=== PATIENT | female | born 1970 | race Caucasian/White ===

== ENCOUNTER 2016-07-26 11:13 | Outpatient (CLI) | payer SELFPAY | END 2016-07-26 11:14 | disposition home or self-care (01) | DX: Z53.9 Procedure and treatment not carried out, unspecified reason (principal); Z12.31 Encounter for screening mammogram for malignant neoplasm of breast ==

== ENCOUNTER 2017-08-13 17:17 | Emergency (ER) | payer BC ==
[2017-08-13 17:25] VITALS: BP 140/89
--- NOTE | 2017-08-13 17:28 | ED Physician Documentation ---
PD HPI LOWER EXT INJURY - Stated complaint Stated Complaint: L FOOT TOE INJ - Chief complaint Chief Complaint: Ext Problem - History obtained from History obtained from: Patient - History of Present Illness PD HPI LOW EXT INJURY LOCATION: Other (She accidentally kicked a piece of wood and injured the left fourth toe tonight with moderate pain. No other injuries.) Review of Systems Constitutional: reports: Reviewed and negative Throat: reports: Reviewed and negative Cardiac: reports: Reviewed and negative PD PAST MEDICAL HISTORY - Past Medical History Endocrine/Autoimmune: Type 2 diabetes - Past Surgical History Past Surgical History: Yes - Present Medications Home Medications: Ambulatory Orders Medication Instructions Recorded Confirmed Gabapentin 1 tab PO DAILY 08/13/17 08/13/17 HYDROcod/ACETAM 5/325 [Hubbell 5/325] 1 - 2 ea PO Q6H PRN #15 tablet 08/13/17 Norethindrone AC-Eth Estradiol 1 tab PO DAILY 08/13/17 08/13/17 [Loestrin 21 1-20 Tablet] - Allergies Allergies/Adverse Reactions: Allergies Allergy/AdvReac Type Severity Reaction Status Date / Time No Known Drug Allergies Allergy Verified 08/13/17 17:29 - Social History Does the pt smoke?: No Smoking Status: Never smoker Does the pt have substance abuse?: No - POLST Patient has POLST: No PD ED PE NORMAL - Vitals Vital signs reviewed: Yes - General General: Alert and oriented X 3, No acute distress - Extremities Extremities: Other (The left fourth toe is slightly rotated and everted and very tender.) - Neuro Neuro: Alert and oriented X 3, Normal speech Results - Vitals Vitals: Vital Signs - 24 hr 08/13/17 17:24 Temperature 37 C Heart Rate 94 Respiratory 20 Rate Blood Pressure 140/89 H O2 Saturation 98 Oxygen O2 Source Room air - Rads (name of study) L 4th toe Radiology: EMP read contemporaneously (Oblique fracture with angulation of the proximal phalanx) Procedures - Reduction Body part reduced: Left, Toe Fracture or dislocation: Fracture Anesthesia: Digital block, Lidocaine (enter cc) (2ml, buffered) Reduction aftercare: Alignment improved, Splint applied (eva tape and shoe), Patient tolerated well Departure - Departure Disposition: 01 Home, Self Care Clinical Impression: Toe fracture, left Qualifiers: Encounter type: initial encounter Toe: lesser toe Fracture type: closed Phalanx : proximal Fracture alignment: displaced Qualified Code(s): S92.512A - Displaced fracture of proximal phalanx of left lesser toe(s), initial encounter for closed fracture Condition: Good Record reviewed to determine appropriate education?: Yes Instructions: ED Fx Toe Closed Prescriptions: HYDROcod/ACETAM 5/325 [Hubbell 5/325] 1 - 2 ea PO Q6H PRN #15 tablet PRN Reason: Pain Comments: Recheck with your physician in 1-2 weeks, return if worse. Do not drink or drive while taking narcotic pain medication. Note that many narcotic pain relievers also contain Tylenol/acetaminophen. Please ensure that your total dose of acetaminophen from all sources does not exceed 3 g (3000 mg) per day. You may get constipated while on this medication. Take a stool softener such as Colace twice a day while you are on it. Also add an febd-rop-eepsgzt laxative such as senna or MiraLAX on any day that you do not have a bowel movement. If you received a narcotic pain medication or sedative while in the emergency department, do not drive for the next 24 hours. Your blood pressure was elevated today on check into the emergency department. This does not mean that you have hypertension, it is a common phenomenon to come to the emergency department and have elevated blood pressure. I recommend that you see your primary care physician within the week to have it rechecked when you are feeling better. Forms: Activity restrictions
[2017-08-13] MEDS ORDERED: HYDROcod/ACETAM 5/325 MG TABLET PO STA (17:36)
[2017-08-13] MEDS ORDERED: BUFFERED LIDOCAINE 10 ML SYRINGE IU ONE (17:44)
[2017-08-13] MEDS ORDERED: BUFFERED LIDOCAINE 10 ML SYRINGE ONE (17:54)
--- NOTE | 2017-08-13 17:59 | XRAY Report ---
EXAM: LEFT TOE RADIOGRAPHY EXAM DATE: 08/13/2017 05:29 PM. CLINICAL HISTORY: Left fourth digit pain. Injury. COMPARISON: None. TECHNIQUE: 3 views. FINDINGS: Bones: Oblique fracture is present involving the mid shaft of the left fourth proximal phalanx with n early complete lateral displacement of the distal fracture fragment. There is mild lateral angulation and mild dorsal angulation present. No intra-articular extent. Joints: Normal. No subluxations. Soft Tissues: Soft tissue swelling. IMPRESSION: 1. Oblique displaced mildly angulated midshaft left fourth proximal phalanx fracture. [facility] Referring Provider Line: [phone] SITE ID: [id number]
== END 2017-08-13 17:56 | disposition home or self-care (01) ==
LOC: ED 17:17
DX: S92.512A Displaced fracture of proximal phalanx of left lesser toe(s), initial encounter for closed fracture (principal); W22.8XXA Striking against or struck by other objects, initial encounter; R03.0 Elevated blood-pressure reading, without diagnosis of hypertension; E11.9 Type 2 diabetes mellitus without complications
CPT/HCPCS: 28510; 73660; 99283; A9270

== ENCOUNTER 2017-09-16 17:11 | Outpatient (CLI) | payer BC ==
--- NOTE | 2017-09-16 22:14 | XRAY Report ---
EXAM: LEFT FOURTH TOE AND LEFT FOOT RADIOGRAPHY EXAM DATE: 09/16/2017 05:19 PM. CLINICAL HISTORY: Severe toe pain after fracture. COMPARISON: 08/13/2017. TECHNIQUE: 3 views left foot and left fourth toe. FINDINGS: Bones: Subacute displaced fracture deformity in the mid right fourth proximal phalanx diaphysis with residual one shaft width of lateral displacement. Fracture remains visible. No definite bony bridging is noted. The remaining osseous structures of the left foot are normal. Joints: Normal. No subluxations. Soft Tissues: Soft tissue swelling centered in the left fourth toe. IMPRESSION: 1. Persistent fracture deformity due to an obliquely oriented displaced mid right fourth proximal pha lanx diaphyseal fracture. One shaft width of lateral displacement is noted. No definite bony bridging . Alignment is similar to the prior study. 2. No new fractures. 3. Soft tissue swelling centered in the left fourth toe. [facility] Referring Provider Line: [phone] SITE ID: [id number]
== END 2017-09-16 17:12 | disposition home or self-care (01) ==
LOC: DI 17:11
PROVIDERS: ATTEND Internal Medicine
DX: M79.675 Pain in left toe(s) (principal); S92.512S Displaced fracture of proximal phalanx of left lesser toe(s), sequela
CPT/HCPCS: 73660

== ENCOUNTER 2017-09-29 16:41 | Outpatient (CLI) | payer OTHER ==
--- NOTE | 2017-09-30 11:06 | XRAY Report ---
THREE VIEW LEFT ANKLE: 09/29/2017 CLINICAL INDICATION: Injury, pain. FINDINGS: AP, lateral, oblique views of the left ankle demonstrate mild degenerative changes. There is no evidence of acute fracture or dislocation. Small plantar and posterior calcaneal spurs are present. IMPRESSION: MILD OSTEOARTHRITIS. TD: 09/30/2017 11:05
== END 2017-09-29 16:42 | disposition home or self-care (01) ==
LOC: DI 16:41
PROVIDERS: ATTEND Internal Medicine
DX: S99.912A Unspecified injury of left ankle, initial encounter (principal); M19.072 Primary osteoarthritis, left ankle and foot

== ENCOUNTER 2019-06-04 16:43 | Outpatient (CLI) | payer BC ==
--- NOTE | 2019-06-04 17:10 | XRAY Report ---
Reason: LT KNEE PAIN AFTER FALL Procedure Date: 06/04/2019 Accession Number: [id number] / [id number] Procedure: XR - Knee 3 View LT CPT Code: Final Report FULL RESULT: EXAM: LEFT KNEE RADIOGRAPHY EXAM DATE: 06/04/2019 04:56 PM. CLINICAL HISTORY: LT KNEE PAIN AFTER FALL. COMPARISON: None. TECHNIQUE: 3 views. FINDINGS: Bones: No fractures or bone lesions. Joints: Normal alignment. No effusion. No subluxations. Soft Tissues: Heterotopic calcifications noted medial to the distal femur, chronic. IMPRESSION: No acute fracture or subluxation. [facility]
== END 2019-06-04 16:44 | disposition home or self-care (01) ==
LOC: DI 16:43
PROVIDERS: ATTEND Internal Medicine
DX: M25.562 Pain in left knee (principal)

== ENCOUNTER 2019-09-12 16:38 | Outpatient (CLI) | payer OTHER, BC | END 2019-09-12 16:39 | disposition critical access hospital (66) | LOC: EMS 16:38 | PROVIDERS: ATTEND Surgery | DX: M54.2 Cervicalgia (principal); R07.81 Pleurodynia; R07.89 Other chest pain; V49.40XA Driver injured in collision with unspecified motor vehicles in traffic accident, initial encounter; Y92.414 Local residential or business street as the place of occurrence of the external cause | CPT/HCPCS: A0425; A0429 ==

== ENCOUNTER 2019-09-12 17:07 | Emergency (ER) | payer OTHER, BC ==
[2019-09-12] MEDS ORDERED: IBUPROFEN 800 MG TABLET PO STA (17:49)
[2019-09-12] MEDS ORDERED: HYDROcod/ACETAM 5/325 MG TABLET PO STA (17:49)
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
[2019-09-12 18:11] VITALS: BP 176/134
== END 2019-09-12 18:19 | disposition home or self-care (01) ==
LOC: EDUNIT# → ED 17:07
DX: S16.1XXA Strain of muscle, fascia and tendon at neck level, initial encounter (principal); V49.49XA Driver injured in collision with other motor vehicles in traffic accident, initial encounter; E11.9 Type 2 diabetes mellitus without complications
CPT/HCPCS: 99283; 99284; A9270

== ENCOUNTER 2019-11-12 15:27 | Outpatient (CLI) | payer BC ==
[2019-11-12] MEDS ORDERED: IOVERSOL 320 50 ML VIAL ONE (15:45)
[2019-11-12 16:04] LABS: CREATININE 0.5 mg/dL (0.4-1.0)
[2019-11-12] MEDS ORDERED: IOVERSOL 320 100 ML VIAL IVP ONE ×2 (16:43→17:00)
[2019-11-12] MEDS ORDERED: IOVERSOL 320 50 ML VIAL PO ONE (17:00)
--- NOTE | 2019-11-12 17:29 | CT Report ---
Reason: Right Lower Quadrant Pain Procedure Date: 11/12/2019 Accession Number: [id number] / [id number] Procedure: CT - Abdomen/Pelvis W CPT Code: Addended Final Report FULL RESULT: EXAM: CT ABDOMEN AND PELVIS EXAM DATE: 11/12/2019 04:56 PM. CLINICAL HISTORY: RIGHT lower quadrant abdominal pain. COMPARISONS: None. TECHNIQUE: Routine helical CT imaging was performed through the abdomen and pelvis. IV contrast: 100 mL OPTIRAY 320. Enteric contrast: Yes. Reconstructions: Coronal and sagittal. In accordance with CT protocol optimization, one or more of the following dose reduction techniques were utilized for this exam: automated exposure control, adjustment of mA and/or KV based on patient size, or use of iterative reconstructive technique. FINDINGS: Mild bibasilar dependent atelectasis is seen. The visible heart is normal in size. There is no pericardial effusion. The liver appears hypoattenuating suggesting diffuse hepatic steatosis. A 1.2 cm peripherally enhancing lesion is suggested in hepatic segment 4B (series 3, image 24). Small calcified gallstones are seen within the gallbladder. There is no gallbladder wall thickening or pericholecystic fluid. No intrahepatic or extrahepatic biliary dilatation is seen. The spleen, pancreas, and adrenal glands are within normal limits. The kidneys enhance symmetrically and are without evidence of mass or hydronephrosis. Diverticula are seen in the colon, greatest in the sigmoid colon. The appendix is normal. There is no evidence of bowel obstruction or inflammation. No free intraperitoneal air or ascites is seen. There is no lymphadenopathy. The abdominal aorta is normal in course and caliber. The bladder is normal. A 1.9 cm cyst is seen in the left ovary. A 2.1 cm hypoattenuating lesion in the right ovary may represent a cyst. The uterus is normal. No free pelvic fluid is seen. There is straightening of the lumbar spine with loss of the normal lumbar lordosis. Severe degenerative disk disease is seen at L5-S1. IMPRESSION: 1. No acute intra-abdominal abnormalities. 2. Cholelithiasis without evidence of acute cholecystitis. 3. Diverticulosis. 4. Suggestion of diffuse hepatic steatosis. 5. Suggestion of peripherally enhancing lesion in hepatic segment 4B may be the result of adjacent overlapping vessels or represent an underlying lesion, such as a hemangioma. Further evaluation with MRI abdomen may be obtained. 6. Bilateral ovarian cysts. [facility] The call report notification system was initiated by Dr. Kenia Arcos at 05:28 PM on 11/12/2019. ADDENDUM: 11/12/19 17:30 The above call report findings were discussed with Dr Bennett by Dr. Kenia Arcos at 05:30 PM on 11/12/2019.
== END 2019-11-12 15:28 | disposition home or self-care (01) ==
LOC: LAB 15:27
PROVIDERS: ATTEND Internal Medicine
DX: K57.30 Diverticulosis of large intestine without perforation or abscess without bleeding (principal); N83.201 Unspecified ovarian cyst, right side; K80.20 Calculus of gallbladder without cholecystitis without obstruction; N83.202 Unspecified ovarian cyst, left side; Z79.899 Other long term (current) drug therapy
CPT/HCPCS: 36415; 74177; 82565; Q9967

== ENCOUNTER 2019-11-16 17:13 | Outpatient (CLI) | payer BC ==
--- NOTE | 2019-11-19 03:30 | Ultrasound Report ---
Reason: OVARIAN LESION,PELVIC PX Procedure Date: 11/16/2019 Accession Number: [id number] / [id number] Procedure: US - Pelvic w/Transvaginal CPT Code: Final Report FULL RESULT: EXAM: PELVIC ULTRASOUND EXAM DATE: 11/16/2019 06:49 PM. CLINICAL HISTORY: Ovarian lesion on CT. Pelvic pain. COMPARISON: ABDOMEN/PELVIS W 11/12/2019 4:50 PM. TECHNIQUE: Realtime transabdominal pelvic scan performed to identify the uterus and adnexa and as an overview of other pelvic structures, followed by transvaginal scan to provide greater detail of the uterus and adnexa, with static image documentation. FINDINGS: Uterus: 8.6 x 5.6 x 6.5 cm, volume 163 cc. Anteverted position. Masses: None. Endometrium: 14 mm. Heterogeneous. Cervix: Unremarkable. Right Ovary: 4.0 x 2.3 x 2.7 cm, volume 12.9 cc. Cyst measuring 2.1 x 1.9 x 2.1 cm. Normal Doppler flow signal. Left Ovary: 3.2 x 2.3 x 2.8 cm, volume 10.8 cc. Cyst measuring 2.5 x 2.1 x 1.7 cm. Normal Doppler flow signal. Free Fluid: None. Other: None. IMPRESSION: 1. Mildly thickened endometrium measuring 14 mm. 2. Small cyst in each ovary. [facility]
== END 2019-11-16 17:14 | disposition home or self-care (01) ==
LOC: DI 17:13
PROVIDERS: ATTEND Internal Medicine
DX: N83.202 Unspecified ovarian cyst, left side (principal); N83.201 Unspecified ovarian cyst, right side; R93.89 Abnormal findings on diagnostic imaging of other specified body structures
CPT/HCPCS: 76830; 76856

== ENCOUNTER 2021-10-30 21:31 | Emergency (ER) | payer OTHER ==
[2021-10-30 21:40] VITALS: BP 145/86
--- NOTE | 2021-10-30 23:03 | XRAY Report ---
PROCEDURE: Elbow 3 View RT INDICATIONS: fell/injured R elbow TECHNIQUE: 3 views of the elbow were acquired. COMPARISON: None. FINDINGS: Bones: No fractures or dislocations. No suspicious bony lesions. Soft tissues: No elbow joint effusion. No suspicious soft tissue calcifications. IMPRESSION: No acute osseous abnormality. Reviewed by: Michael Herrera MD on 10/30/2021 11:01 PM PDT Approved by: Michael Herrera MD on 10/30/2021 11:01 PM PDT Station ID: [id number]
[2021-10-30] MEDS ORDERED: HYDROcod/ACETAM 5/325 MG TABLET PO STA (23:29)
--- NOTE | 2021-10-30 23:29 | ED Physician Documentation ---
PD HPI UPPER EXT INJURY - Stated complaint Stated Complaint: RT ARM PX/WORK INJ - Chief complaint Chief Complaint: Trauma Ext - Additonal information Additional information: Patient is 51-year-old female presenting with right elbow injury. Reports slipped and fell falling on her right elbow while at work today. Denies head trauma, loss of consciousness use of blood thinning medications. Is right-hand dominant. 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 - Past Surgical History Past Surgical History: Yes - Present Medications Home Medications: Ambulatory Orders Medication Instructions Recorded Confirmed Gabapentin 1 tab PO DAILY 08/13/17 10/30/21 Norethindrone AC-Eth Estradiol 1 tab PO DAILY 08/13/17 10/30/21 [Loestrin 21 1-20 Tablet] Glipizide [Glipizide Xl] 5 mg PO BID 10/30/21 10/30/21 Ibuprofen [Motrin] 600 mg PO Q6H PRN #30 tab 10/30/21 SITagliptin [Januvia] 100 mg PO DAILY 10/30/21 10/30/21 - Allergies Allergies/Adverse Reactions: Allergies Allergy/AdvReac Type Severity Reaction Status Date / Time No Known Drug Allergies Allergy Verified 10/30/21 21:40 - Social History Does the pt smoke?: No Smoking Status: Never smoker Does the pt drink ETOH?: Yes Does the pt have substance abuse?: No - Immunizations Immunizations are current?: Yes - POLST Patient has POLST: No PD ED PE NORMAL - General General: Alert and oriented X 3 - HEENT HEENT: Atraumatic - Neck Neck: Supple, no meningeal sign - Cardiac Cardiac: RRR - Respiratory Respiratory: No respiratory distress - Abdomen Abdomen: Normal bowel sounds - Female Female : Deferred - Extremities Extremities: No deformity, Other (Moderate soft tissue swelling and tenderness to palpation appreciated along the right proximal forearm. Patient has normal range of motion at the right wrist, Elbow and shoulder. Radial and ulnar pulses palpable. Normal sensation distal to the site of injury in all dermatomes.) Results - Vitals Vitals: Vital Signs - 24 hr 10/30/21 21:37 Temperature 36.9 C Heart Rate 89 Respiratory 16 Rate Blood Pressure 145/86 H O2 Saturation 98 Oxygen O2 Source Room air PD MEDICAL DECISION MAKING - ED course Complexity details: reviewed results, d/w patient ED course: Patient is 51-year-old female presenting to the emergency department after falling onto her right arm at work today. Moderate soft tissue swelling appreciated on exam but otherwise neurovascularly intact. X-rays negative for acute fracture. Provided patient with sling here in the emergency department and was given medication for pain control. Will discharge at this time with instructions for follow-up with primary care. Otherwise clear return precautions and follow-up instructions given prior to discharge. Departure - Departure Disposition: 01 Home, Self Care Clinical Impression: Elbow injury Instructions: ED Sprain Elbow Prescriptions: Ibuprofen [Motrin] 600 mg PO Q6H PRN #30 tab PRN Reason: Pain Comments: Thank you for allowing us to care for you today at [facility]. The x-rays taken today did not show any fracture. I will be providing you with a sling to use as needed for pain control. Please use the sling as little as possible as extended or excessive use can lead to the muscles of your rotator cuff tightening, and condition known as adhesive capsulitis, also known as frozen shoulder. While using the sling please engage in the regular range of motion exercises demonstrated here in the emergency department. Please drink plenty fluids and get plenty of rest. Please avoid activities that cause pain While your arm is healing. Motrin and Tylenol are excellent medications to take for pain control. The use of ice packs and elevation can also help decrease swelling and thereby decrease pain. Please make a follow-up appoint with your primary care doctor soon as possible. If it anytime you have any new or worsening symptoms if you are having persistent pain that does not seem to be improving over the course the next 5 to 7 days please return to the emergency department for reevaluation. Discharge Date/Time: 10/30/21 23:54
== END 2021-10-30 23:54 | disposition home or self-care (01) ==
LOC: ED 21:31
DX: S59.901A Unspecified injury of right elbow, initial encounter (principal); W01.0XXA Fall on same level from slipping, tripping and stumbling without subsequent striking against object, initial encounter; Y99.0 Civilian activity done for income or pay; E11.9 Type 2 diabetes mellitus without complications; Z79.84 Long term (current) use of oral hypoglycemic drugs
CPT/HCPCS: 1040M; 73080; 99282; 99283; A9270

== ENCOUNTER 2023-07-24 10:24 | Outpatient (CLI) | payer BC, OTHER ==
--- NOTE | 2023-07-24 11:08 | XRAY Report ---
PROCEDURE: Wrist 3+V LT INDICATIONS: WRIST PX TECHNIQUE: 3 views of the wrist were acquired. COMPARISON: None. FINDINGS: Bones: No fractures or dislocations. No suspicious bony lesions. Soft tissues: No suspicious soft tissue calcifications or masses. IMPRESSION: No acute bony abnormality. If there is anatomic snuff box tenderness, consider wrist immobilization a nd repeat radiographs in 10-14 days or cross-sectional imaging now. If pain persists with conservativ e management, consider repeat radiographs in 10-14 days or cross-sectional imaging. Reviewed by: Pat Taylor MD on 07/24/2023 11:06 AM PST Approved by: Pat Taylor MD on 07/24/2023 11:06 AM PST Station ID: [id number]
== END 2023-07-24 10:25 | disposition home or self-care (01) ==
LOC: DI 10:24
PROVIDERS: ATTEND Internal Medicine
DX: M25.532 Pain in left wrist (principal); E11.9 Type 2 diabetes mellitus without complications; S63.599A Other specified sprain of unspecified wrist, initial encounter; Z79.899 Other long term (current) drug therapy; M25.539 Pain in unspecified wrist
CPT/HCPCS: 36415; 80048; 83036

== ENCOUNTER 2023-07-24 10:29 | Outpatient (CLI) | payer BC ==
[2023-07-24 10:53] LABS: CALCIUM 10.1 mg/dL (8.5-10.3); CREATININE 0.7 mg/dL (0.6-1.3); POTASSIUM 4.1 mmol/L (3.5-4.5)
[2023-07-25 10:28] LABS: ESTIMATED AVERAGE GLUCOSE 260 mg/dL (70-100); HEMOGLOBIN A1c% 10.7 % (4.27-6.07)
== END 2023-07-24 10:30 | disposition home or self-care (01) ==
LOC: LAB 10:29
PROVIDERS: ATTEND Internal Medicine
DX: E11.9 Type 2 diabetes mellitus without complications (principal); S63.599A Other specified sprain of unspecified wrist, initial encounter; Z79.899 Other long term (current) drug therapy; M25.539 Pain in unspecified wrist
CPT/HCPCS: 36415; 80048; 83036

== ENCOUNTER 2023-09-02 13:13 | Outpatient (CLI) | payer OTHER ==
--- NOTE | 2023-09-02 20:16 | CT Report ---
PROCEDURE: Upper Extremity LT WO INDICATIONS: LEFT WRIST PAIN TECHNIQUE: Noncontrast 2 mm axial sections were acquired through the elbow joint, with coronal and sagittal refo rmats. For radiation dose reduction, the following was used: automated exposure control, adjustment of mA and/or kV according to patient size. COMPARISON: Left wrist radiographs 07/24/2023. FINDINGS: Image quality: Excellent. Bones: Postsurgical changes are seen from prior resection of the trapezium with an osseous tunnel in the 1st metacarpal base related to surgical fixation. Small heterotopic ossification is seen volar t o the surgical site. No acute osseous fracture. Carpal bones are normally aligned. Soft tissues: Small radiocarpal effusion. The articular cartilages, ligaments, and tendons are not w ell evaluated with CT. The musculature surrounding the wrist is normal in bulk. IMPRESSION: 1.Postsurgical changes from prior trapezium resection. 2.No acute osseous abnormality. 3.Small radiocarpal effusion. Reviewed by: Bhupinder Medley MD on 09/02/2023 8:15 PM PST Approved by: Bhupinder Medley MD on 09/02/2023 8:15 PM PST Station ID: [id number]
== END 2023-09-02 13:14 | disposition home or self-care (01) ==
LOC: DI 13:13
PROVIDERS: ATTEND Internal Medicine
DX: M25.532 Pain in left wrist (principal); M25.432 Effusion, left wrist

== ENCOUNTER 2023-10-17 13:04 | Outpatient (CLI) | payer OTHER, BC ==
[2023-10-17 13:30] LABS: ALBUMIN 4.3 g/dL (3.2-5.5)
[2023-10-17 13:36] LABS: ALKALINE PHOSPHATASE 46 IU/L (42-121); ALT ALANINE AMINOTRANSFERASE 35 IU/L (10-60); AST ASPARTATE AMINOTRANSFERASE 26 IU/L (10-42); BILIRUBIN,DIRECT < 0.10 mg/dL (0.03-0.18); BILIRUBIN,TOTAL 0.5 mg/dL (0.2-1.0); BUN - BLOOD UREA NITROGEN 16 mg/dL (6-20); CRP - C-REACTIVE PROTEIN 0.9 mg/dL (<0.5); TOTAL PROTEIN 7.3 g/dL (6.4-8.9)
== END 2023-10-17 13:05 | disposition home or self-care (01) ==
LOC: LAB 13:04
PROVIDERS: ATTEND Orthopaedic Surgery
DX: S69.82XA Other specified injuries of left wrist, hand and finger(s), initial encounter (principal)
CPT/HCPCS: 36415; 80076; 84520; 86140